=== PATIENT | female | born 2000 | race Two or more races ===

== ENCOUNTER 2024-11-19 02:35 | Emergency (ER) | payer MEDICAID, SELFPAY ==
[2024-11-19 02:36] VITALS: BMI 27.0
[2024-11-19 02:46] VITALS: BP 104/72; PULSE 95; RESP 17; TEMP 37.2; O2SAT 96
--- NOTE | 2024-11-19 02:54 | EDNOTE_ITS ---
ED Abdominal Pain RME/HPI General Chief Complaint: Abdominal Pain Stated complaint: upper abd pain Time seen by provider: 11/19/24 02:54 Arrival date/time: 11/19/24 02:35 RME / HPI RME / HPI narrative: This section includes all my notes and documentations, including HPI, PE, and ED course. Marquis Mann MD HPI: 24yo female with no significant past medical history presents to the ED for a chief complaint of epigastric pain x 4 hours. Patient states she woke up having epigastric pain that radiates to her back. Patient reports associated nausea, vomiting, and dysuria. Patient denies any fever, chills or any other associated symptoms. She denies any history of similar symptoms. Denies any previous abdominal surgeries. Denies any possibility of being . She is not on any daily medications. No other complaints reported. ROS: All negative except as documented in HPI. Physical Exam: General: Alert and oriented. Appears to be in pain. Eyes: Conjunctivae and lids clear. ENT: No nasal congestion. Neck: Supple. Heart: RRR. Lungs: No respiratory distress. Good air movement. No rhonchi, wheezing, rales. Abdomen: Soft. Epigastric and RUQ tenderness. No distension. No rebound or guarding. Back: No CVA tenderness. Skin: Warm and dry. Neuro: Alert and oriented X 3. I reviewed all diagnostic test results. My review of the US gallbladder report is unremarkable. Blood tests are unremarkable. At this point, diagnoses include stomach ulcer. Treatment here included Tylenol with Codeine and Zofran. Significant improvement noted. Prescribed famotidine and omeprazole and recommended more outpatient workup. Based on my best medical judgment, made decision no further evaluation or treatment indicated at this time. Patient understands and agrees to the discharge instructions customized and printed, see below. Discharge instructions from Dr. Mann: ?After evaluation, your symptoms are due to stomach ulcer (see attached handout). ?To help heal the ulcer, take Omeprazole 40 mg every morning and Famotidine 40 mg at bedtime for a week then as needed. ?Zofran for nausea/vomiting. Clear liquid diet for 24 hours. Then slowly advance diet as tolerated. ?Avoid food and beverages that can trigger and worsen ulcers. See attached handout. ?See a private doctor on 11/20/2024. To make sure there is no serious intra-abdominal condition, ask for help with more investigation not available here in the ER. Such as EGD or scoping the stomach, colonoscopy or scoping the colon, and referral to see medical administrative assistant. Ask to review all test results and official radiology reports, to make sure you receive all necessary follow-ups and monitoring, including final urine test results. ?Seek immediate medical care with worsening or with any concerns. Marquis Mann MD Related Data Previous Rx's ?Medication ?Instructions ?Recorded benzonatate 100 mg capsule 100 mg PO TID #14 caps 08/24 08/19 famotidine 40 mg tablet 40 mg PO .bedtime #30 tabs 0 11/19/24 omeprazole 40 mg capsule,delayed 40 mg PO QDAY #30 cap s 11/19/24 release ondansetron 4 mg disintegrating 4 mg PO TID PRN nausea and 11/19/24 tablet vomiting 30 days #10 tabs Allergies Allergy/AdvReac Type Severity Reaction Status Date / Time NKA Allergy Unknown Uncoded 09/05/23 10:57 Review of Systems Review of Systems Systems Reviewed: All systems reviewed, normal except as documented Past Medical History Social History SMOKING STATUS: Never smoker ED Exam Narrative Physical exam: As noted in HPI. Course Quality Measures none Orders Category Date Time Status US gall bladder Stat Exams 11/19/24 02:59 Ordered Amylase Stat Lab 11/19/24 03:40 Completed Bilirubin,Direct Stat Lab 11/19/24 03:40 Completed CBC Stat Lab 11/19/24 03:40 Completed CMP [Comprehensive Metabolic Panel] Stat Lab 11/19/24 03:40 Completed Lipase Stat Lab 11/19/24 03:40 Completed Magnesium Stat Lab 11/19/24 03:40 Completed UA, C/S IF [Urinalysis, C/S if Indicated] Stat Lab 11/19/24 02:59 Ordered ACETAMINOPHEN w/COD 300-30 [Tylenol w/Cod #3] Med 11/19/24 02:58 Discontinued 2 tab PO X1 ONE Ondansetron Odt [Zofran Odt] Med 11/19/24 02:58 Discontinued 4 mg PO X1 ONE Vital Signs Vital signs: Vital Signs Temperature 98.9 F 11/19/24 02:46 Pulse Rate 95 11/19/24 02:46 Respiratory Rate 17 11/19/24 02:46 Blood Pressure 104/72 11/19/24 02:46 Pulse Oximetry (%) 96 11/19/24 02:46 Oxygen Delivery Method Room Air 11/19/24 02:46 Abdominal Pain MDM MDM Narrative MDM Narrative:: Scribe Attestation: 11/19/24 Maggie Alexandre am scribing for and in the presence of Dr. Mann. 24yo female with no significant past medical history presents to the ED for a chief complaint of epigastric pain x 4 hours. Patient states she woke up having epigastric pain that radiates to her back. Patient reports associated nausea, vomiting, and dysuria. Patient denies any fever, chills or any other associated symptoms. She denies any history of similar symptoms. Denies any previous abdominal surgeries. Denies any possibility of being . She is not on any daily medications. No other complaints reported. Patient data External records reviewed:: [facility] previous records (Per chart review, patient has no relevant previous ED visits.) Clinical information provided by:: patient Social determinants that could affect healthcare access:: none Patient has the following chronic illnesses:: none How is presenting disease/condition affected by chronic disease/condition?: no chronic disease Evaluation data The following diagnostics were reviewed and interpreted by me:: lab results and radiology exam(s) Lab and/or radiology exams considered but not ordered:: none Interpretation Summary: I reviewed all diagnostic test results. My review of the US gallbladder report is unremarkable. Blood tests are unremarkable. Medications / Prescriptions Medications or Prescriptions considered but not ordered:: none Medication administrations:: Medication Administration History Discontinued Medications Acetaminophen/Codeine Phosphate (Acetaminophen W/Cod 300-30 Tablet) 2 tab PO X1 ONE Stop: 11/19/24 02:59 Last Admin: 11/19/24 03:59 Dose: 2 tab Documented By: NANCI Ondansetron HCl (Ondansetron Odt 4 Mg Tabrap) 4 mg PO X1 ONE; Protocol Stop: 11/19/24 02:59 Last Admin: 11/19/24 03:59 Dose: 4 mg Documented By: NANCI Tylenol with Codeine, Zofran Consultations Consultation(s) initiated? (list below): No Diagnosis Differential diagnosis abdominal pain: constipation, pancreatitis and other (GERD, gastritis, PUD, biliary colic) Most likely diagnosis given after review of the tests above:: Stomach ulcer Admission Indicated Admission indicated?: not indicated Explain why admission is indicated or not indicated:: With significant improvement, there was no indication for admission. Admission Request Was there a request for admission?: No Disposition Plan Disposition Plan: Discharge Discharge Attestation Discharge Attestation: The patient and all family members were given an opportunity to ask questions and understood the discharge instructions. Discharge instructions specifically effects, indications for sooner follow up or return to the emergency department, and the expected course of current diagnosis. Patient condition: Stable Discharge Plan Plan Patient Disposition: HOME (Self Care) Prescriptions/Referrals Prescriptions/Med Rec: New famotidine 40 mg tablet 40 mg PO .bedtime Qty: 30 0RF omeprazole 40 mg capsule,delayed release(DR/EC) 40 mg PO QDAY Qty: 30 0RF ondansetron 4 mg tablet,disintegrating 4 mg PO TID PRN (Reason: nausea and vomiting) 30 Days Qty: 10 0RF No Action benzonatate 100 mg capsule 100 mg PO TID Qty: 14 0RF Referrals: No Primary/Family,Physician [Primary Care Provider] - In 1 week Problem List Clinical Impression: Stomach ulcer Patient/Caregiver Discharge Instructions Discharge Activity: activity as tolerated Education Materials: ED PEPTIC ULCER vs GASTRITIS Additional Instructions: Discharge instructions from Dr. Mann: ?After evaluation, your symptoms are due to stomach ulcer (see attached handout).? ?To help heal the ulcer, take Omeprazole 40 mg every morning and Famotidine 40 mg at bedtime for a week then as needed. ?Zofran for nausea/vomiting.? Clear liquid diet for 24 hours.? Then slowly advance diet as tolerated. ?Avoid food and beverages that can trigger and worsen ulcers.? See attached handout. ?See a private doctor on 11/20/2024. To make sure there is no serious intra-abdominal condition, ask for help with more investigation not available here in the ER.? Such as EGD or scoping the stomach, colonoscopy or scoping the colon, and referral to see medical administrative assistant. Ask to review all test results and official radiology reports, to make sure you receive all necessary follow-ups and monitoring, including final urine test results. ?Seek immediate medical care with worsening or with any concerns. Print Language: Macedonian Stand Alone Forms: [facility] Award Info., Patient Portal Info Letter
--- NOTE | 2024-11-19 02:59 | XR_ITS ---
Examination: Abdomen sonogram, Limited Date and time of exam: November 19, 2024 0406 hours INDICATIONS: Onset epigastric pain today Technique: Real-time carroll scale transabdominal sonographic images of the upper abdomen obtained. Findings: Normal gallbladder. Normal common bile duct 0.1 cm Pancreas obscured by bowel gas Liver 13.3 cm no focal liver lesions. Normal hepatopedal portal venous flow. Patent IVC. IMPRESSION: Normal gallbladder
[2024-11-19 03:52] LABS: Basophils % (Auto) 1 % (0-2.5); Eosinophils # (Auto) 0.4 Thou/mm3 (0.0-0.5); Eosinophils % (Auto) 4 % (0-10); Hematocrit 35.4 % (36.0-46.0); Hemoglobin 12.4 g/dL (12.0-16.0); Immature Granulocytes % (Auto) 0 % (0-0); Immature Granulocytes Auto 0.02 Thou/mm3 (0.00-0.00); Lymphocytes % (Auto) 23 % (10-50); Mean Corpuscular Hemoglobin 30.5 pg (25.0-35.0); Mean Corpuscular Volume 87 fL (80-100); Monocytes # (Auto) 0.6 Thou/mm3 (0.0-0.8); Monocytes % (Auto) 7 % (0-12); Neutrophils # (Auto) 5.8 Thou/mm3 (1.8-7.7); Neutrophils % (Auto) 65 % (37-80); Nucleated Red Blood Cell % 0 /100 WBC (0); Platelet Count 289 Thou/mm3 (140-440); RDW Standard Deviation 38.9 fL (36.4-46.3); Red Blood Count 4.06 Miln/mm3 (4.00-5.20); White Blood Count 8.9 Thou/mm3 (3.6-11.0)
[2024-11-19] MEDS: ACETAMINOPHEN w/COD 300-30 TABLET 2 TAB PO (03:59)
[2024-11-19] MEDS: ONDANSETRON ODT 4 MG TABRAP PO (03:59)
[2024-11-19 04:11] LABS: Alanine Aminotransferase 11 U/L (10-49); Albumin/Globulin Ratio 2.3 (1.2-2.2); Alkaline Phosphatase 156 U/L (46-116); Amylase 83 U/L (30-118); Anion Gap 10 (7-16); Aspartate Amino Transferase 23 U/L (0-34); BUN/Creatinine Ratio 15 Ratio (12-20); Bilirubin,Direct 0.1 mg/dL (0.0-0.3); Bilirubin,Total 0.4 mg/dL (0.3-1.2); Blood Urea Nitrogen 12 mg/dL (9-23); Calcium 9.1 mg/dL (8.3-10.6); Calcium (Corrected) 9.1 mg/dL (8.5-10.1); Carbon Dioxide 25.1 mMol/L (20.0-31.0); Chloride 106 mMol/L (98-107); Creatinine (Component) 0.8 mg/dL (0.6-1.3); Estimated Creatinine Clearance 95.1 mL/min (>60); Globulin 2.2 gm/dL (2.3-3.5); Glucose 118 mg/dL (74-106); Lipase 36 U/L (12-53); Magnesium 1.8 mg/dL (1.6-2.6); Osmolality,Calculated 281 (275-295); Potassium 3.7 mMol/L (3.4-5.1); Sodium 141 mMol/L (136-145); Total Protein 7.2 gm/dL (5.7-8.2); eGFR > 60 See Note
--- NOTE | 2024-11-19 05:57 | PRELIM_ITS ---
Gallbladder ultrasound. November 19, 2024 0406 hours Clinical history: RUQ tenderness Findings: The visualized liver is normal in echogenicity without mass or ductal dilatation. The main portal vein is patent and demonstrates hepatopetal flow. No gallbladder calculus, wall thickening or pericholecystic fluid is identified. The common duct is normal in caliber at 1 mm. The pancreas is not visualized. The inferior vena cava is patent. Impression: No sonographic evidence of cholelithiasis, acute cholecystitis or biliary obstruction. Report Electronically Signed By: Magen Neri 11/19/2024 5:57:11 AM [EST]
== END 2024-11-19 04:28 | disposition home or self-care (01) ==
PROVIDERS: Emergency Provider Emergency Medicine
DX: K25.9 Gastric ulcer, unspecified as acute or chronic, without hemorrhage or perforation (principal)
CPT/HCPCS: 36415; 76705; 80053; 81001; 82150; 82248; 83690; 83735; 85025; 99284; Q0162; A9270